=== PATIENT | male | born 1960 | race Caucasian/White ===

== ENCOUNTER 2024-04-14 13:40 | Emergency (ER) | payer MEDICAID ==
[2024-04-14 14:08] LABS: CREATININE 1.4 mg/dL (0.70-1.30); ESTIMATED GFR 57 mL/min (>=60)
[2024-04-14] MEDS: Iopamidol 755 Mg/ML 100 ML Bottle IVPUSH ONE (14:56)
== END 2024-04-14 15:50 | disposition left against medical advice (07) ==
LOC: VM.ED 13:40
DX: G81.91 Hemiplegia, unspecified affecting right dominant side (principal); I11.0 Hypertensive heart disease with heart failure; I50.9 Heart failure, unspecified; J44.89 Other specified chronic obstructive pulmonary disease; E66.9 Obesity, unspecified; E11.9 Type 2 diabetes mellitus without complications; E03.9 Hypothyroidism, unspecified; F17.210 Nicotine dependence, cigarettes, uncomplicated; Z88.5 Allergy status to narcotic agent; Z88.6 Allergy status to analgesic agent; Z88.8 Allergy status to other drugs, medicaments and biological substances; Z79.890 Hormone replacement therapy; Z79.899 Other long term (current) drug therapy; Z90.49 Acquired absence of other specified parts of digestive tract; Z68.31 Body mass index [BMI] 31.0-31.9, adult
CPT/HCPCS: 36415; 70496; 72052; 82565; 99285; Q9967; 99284

== ENCOUNTER 2024-04-14 16:53 | Emergency (ER) | payer MEDICAID ==
[2024-04-14 17:49] LABS: HEMATOCRIT 42.4 % (40.0-52.0); HEMOGLOBIN 14.4 g/dL (14.0-18.0); IMMATURE GRAN ABSOLUTE AUTO 0.02 x10^3/uL (0.00-0.07); LYMPHOCYTES ABSOLUTE AUTO 0.7 x10^3/uL (1.0-4.8); LYMPHOCYTES PERCENT AUTO 9.2 % (25.0-50.0); MEAN CORPUSCULAR HEMOGLOBIN 29.8 pg (26.0-32.0); MEAN CORPUSCULAR VOLUME 87.6 fL (78.0-93.0); MONOCYTES ABSOLUTE AUTO 0.2 x10^3/uL (0.0-0.8); MONOCYTES PERCENT AUTO 2.4 % (2.0-11.0); NEUTROPHILS ABSOLUTE AUTO 6.5 x10^3/uL (1.8-7.7); NEUTROPHILS PERCENT AUTO 88.1 % (50.0-80.0); PLATELET COUNT,PLT 211 x10^3/uL (130-400); RED BLOOD CELL COUNT 4.84 x10^6/uL (4.5-6.0); WHITE BLOOD CELL COUNT,WBC 7.4 x10^3/uL (4.0-10.0)
[2024-04-14] MEDS: Ondansetron 4 MG/2 ML SDV IVPUSH ONE (17:55)
[2024-04-14] MEDS: HYDROmorphone 1 MG/ML Syringe SUBCUT ONE (17:57)
[2024-04-14 18:04] LABS: PROTHROMBIN TIME 10.5 SEC (8.9-11.5); PTT,PARTIAL THROMBOPLSTIN TIME 25.9 SEC (21.9-33.8)
[2024-04-14 18:06] LABS: A/G RATIO 1.06; ALANINE AMINOTRANSFERASE,ALT 39 U/L (16-63); ALBUMIN 3.4 g/dL (3.4-5.0); ALKALINE PHOSPHATASE 100 U/L (46-116); ANION GAP 13.7 mmol/L (5-15); ASPARTATE AMNIOTRANSFERASE,AST 15 U/L (15-37); BILIRUBIN TOTAL 0.3 mg/dL (0.2-1.0); BLOOD UREA NITROGEN,BUN 23 mg/dL (7-18); CALCIUM 9.1 mg/dL (8.5-10.1); CARBON DIOXIDE,CO2 25 mmol/L (21-32); CHLORIDE,CL 106 mmol/L (98-107); CREATININE 1.6 mg/dL (0.70-1.30); ESTIMATED GFR 49 mL/min (>=60); GLUCOSE RANDOM 391 mg/dL (70-99); POTASSIUM,K 3.7 mmol/L (3.5-5.1); PROTEIN TOTAL,TP 6.6 g/dL (6.4-8.2); SODIUM,NA 141 mmol/L (136-145)
[2024-04-14] MEDS: Factor IX Complex Human 1,000 UNIT VIAL IVPUSH ONE (18:37)
== END 2024-04-14 19:34 | disposition short-term general hospital (02) ==
LOC: VM.ED 16:53
DX: I61.9 Nontraumatic intracerebral hemorrhage, unspecified (principal); I11.0 Hypertensive heart disease with heart failure; I50.9 Heart failure, unspecified; J44.89 Other specified chronic obstructive pulmonary disease; K21.9 Gastro-esophageal reflux disease without esophagitis; E66.9 Obesity, unspecified; E11.9 Type 2 diabetes mellitus without complications; E03.9 Hypothyroidism, unspecified; Z88.5 Allergy status to narcotic agent; Z88.6 Allergy status to analgesic agent; Z88.8 Allergy status to other drugs, medicaments and biological substances; Z79.890 Hormone replacement therapy; Z79.899 Other long term (current) drug therapy
CPT/HCPCS: 80053; 85025; 85610; 85730; 96372; 96374; 99285; J1171; J2405; J7168; 36415; 99284